=== PATIENT | female | born 1935 | race Caucasian/White ===

== ENCOUNTER 2024-06-15 13:48 | Emergency (ER) | payer OTHER, MEDICAID ==
[~2024-06-15] VITALS: Ht 170.2 cm; Wt 78.0 kg
[2024-06-15 13:56] VITALS: O2SAT 94
[2024-06-15 14:53] LABS: CHLORIDE 105 mEq/L (98-107); POTASSIUM 4.6 mEq/L (3.5-5.1); SODIUM 137 mEq/L (136-145)
[2024-06-15 14:54] LABS: CARBON DIOXIDE 29 mEq/L (21-32)
[2024-06-15 14:55] LABS: CALCIUM 9.1 mg/dL (8.7-10.4)
[2024-06-15 14:59] LABS: CREATININE 0.7 mg/dL (0.6-1.0); GLUCOSE 111 mg/dL (70-105); UREA NITROGEN BLOOD 14 mg/dL (9-23)
[2024-06-15 15:00] LABS: BASOPHILS % 1.3 % (0.0-2.0); EOSINOPHILS % 0.8 % (0.0-5.0); HEMATOCRIT. 23.7 % (36.0-48.0); HEMOGLOBIN. 7.1 g/dL (12.0-16.0); LYMPHOCYTES % 24.9 % (20.0-50.0); MEAN CORPUSCULAR HEMOGLOBIN 20.8 pg (28.0-32.0); MEAN CORPUSCULAR HGB CONC 29.7 g/dL (31.0-37.0); MEAN CORPUSCULAR VOLUME 69.8 fL (81.0-99.0); MEAN PLATELET VOLUME 8.9 fl (7.4-10.4); MONOCYTES % 12.5 % (2.0-8.0); NEUTROPHILS % 60.5 % (40.0-76.0); PLATELET 219 x1000/uL (130-400); RED BLOOD CELL COUNT 3.39 mill/uL (4.2-5.4); RED CELL DISTRIBUTION WIDTH 17.5 % (11.6-14.6); WHITE BLOOD COUNT 6.9 x1000/uL (4.5-11.0)
[2024-06-15 15:04] LABS: DIFFERENTIAL COMMENT 1
[2024-06-15 15:05] LABS: ADD RBC MORPHOLOGY YES
[2024-06-15 15:56] LABS: CLARITY URINE CLEAR (CLEAR); COLOR URINE YELLOW (YELLOW); GLUCOSE URINE NEGATIVE (NEGATIVE); KETONES URINE NEGATIVE (NEGATIVE); LEUKOCYTE ESTERASE URINE 3+ (NEGATIVE); NITRITE URINE NEGATIVE (NEGATIVE); OCCULT BLOOD URINE NEGATIVE (NEGATIVE); PH URINE 7.5 (4.5-8.0); PROTEIN URINE NEGATIVE (NEGATIVE); SPECIFIC GRAVITY URINE 1.006 (1.005-1.030)
[2024-06-15 16:21] LABS: ANISOCYTOSIS 1+; PLATELET ESTIMATE NORMAL
[2024-06-15 16:22] LABS: HYPOCHROMASIA 1+; MICROCYTOSIS 3+
[2024-06-15] MEDS ORDERED: NITR-87 MT (16:58)
[2024-06-15 17:16] LABS: BACTERIA URINE 2+; RBC URINE 0-2 /hpf (0-2); SQUAMOUS EPITHELIAL CELL URINE 1+ /lpf (RARE/1+); WBC URINE 50-100 /hpf (0-2)
[2024-06-15] MEDS: NITROFURANTOIN 100MG M/M CAPSULE PO ONE (17:31)
[2024-06-15 17:34] VITALS: BP 142/60; PULSE 85; RESP 20; TEMP 37; O2SAT 95
== END 2024-06-15 17:40 | disposition home or self-care (01) ==
LOC: ER 13:48 → EDBEDREQ 15:02 → ER 17:40
DX: N39.0 Urinary tract infection, site not specified (principal); I10 Essential (primary) hypertension; F03.90 Unspecified dementia, unspecified severity, without behavioral disturbance, psychotic disturbance, mood disturbance, and anxiety
CPT/HCPCS: 36415; 71045; 80048; 81003; 83880; 85025; 87077; 87186; 99284

== ENCOUNTER 2024-09-10 22:10 | Inpatient (IN) | payer OTHER, MEDICAID, MEDICARE ==
[~2024-09-10] VITALS: Ht 165.1 cm; Wt 69.4 kg
[~2024-09-10 22:10] MED LIST: NITR-87 MT
[2024-09-11] VITALS (8 sets, daily range): BP systolic 125–157; BP diastolic 53–73; PULSE 75–97; RESP 16–20; TEMP 36.2–37.4; O2SAT 94–98
[2024-09-11] MEDS: SODIUM CHLORIDE 0.9% 1,000 ML IV ONE ×2 (00:14→01:38)
[2024-09-11] MEDS: MIDAZOLAM HCL 2 MG/2 ML VIAL IM ONE (01:09)
[2024-09-11 01:47] LABS: BASOPHILS % 0.5 % (0.0-2.0); EOSINOPHILS % 0.7 % (0.0-5.0); HEMATOCRIT. 27.9 % (36.0-48.0); HEMOGLOBIN. 8.4 g/dL (12.0-16.0); LYMPHOCYTES % 14.7 % (20.0-50.0); MEAN PLATELET VOLUME 7.7 fl (7.4-10.4); MONOCYTES % 9.1 % (2.0-8.0); NEUTROPHILS % 75.0 % (40.0-76.0); PLATELET 288 x1000/uL (130-400); RED BLOOD CELL COUNT 4.05 mill/uL (4.2-5.4); RED CELL DISTRIBUTION WIDTH 20.3 % (11.6-14.6)
[2024-09-11 01:48] LABS: ADD RBC MORPHOLOGY YES
[2024-09-11 02:12] LABS: TROPONIN I HIGH SENSITIVITY 27 ng/L (3.0-34)
[2024-09-11 02:53] LABS: CREATININE 0.7 mg/dL (0.6-1.0); UREA NITROGEN BLOOD 10 mg/dL (9-23)
[2024-09-11] MEDS: CEFTRIAXONE 2GM/50ML 50 ML IV NR (03:58)
[2024-09-11 03:59] LABS: TROPONIN I HIGH SENSITIVITY 21 ng/L (3.0-34)
[2024-09-11 05:09] LABS: PLATELET ESTIMATE NORMAL
[2024-09-11] MEDS: AZITHROMYCIN 500MG/250ML 250 ML IV NR (05:26)
[2024-09-11 09:21] LABS: CLARITY URINE CLEAR (CLEAR); COLOR URINE YELLOW (YELLOW); GLUCOSE URINE NEGATIVE (NEGATIVE); KETONES URINE NEGATIVE (NEGATIVE); LEUKOCYTE ESTERASE URINE NEGATIVE (NEGATIVE); NITRITE URINE NEGATIVE (NEGATIVE); OCCULT BLOOD URINE NEGATIVE (NEGATIVE); PH URINE 8.5 (4.5-8.0); PROTEIN URINE NEGATIVE (NEGATIVE); SPECIFIC GRAVITY URINE 1.009 (1.005-1.030); UROBILINOGEN URINE 1.0 E.U./dL (0.2-1.0)
[2024-09-11] MEDS: HALOPERIDOL LACTATE 5MG/ML VIAL IM SCH (09:53)
[2024-09-11] MEDS: IPRATROPIUM/ALBUTEROL 0.5-3(2.5)MG/3ML NEB HHN SCH (13:01)
[2024-09-11] MEDS ORDERED: HYDRALAZINE HCL 25MG TABLET PO PRN (13:15)
[2024-09-11] MEDS ORDERED: CLONIDINE 0.1MG TABLET PO PRN (14:15)
[2024-09-11] MEDS ORDERED: MAGNESIUM/ALUMINUM HYDROXIDE/SIMETHICONE 30ML UDC PO PRN (14:15)
[2024-09-11] MEDS ORDERED: ACETAMINOPHEN 325MG TABLET PO PRN (14:15)
[2024-09-11] MEDS ORDERED: ONDANSETRON HCL 4MG/2ML INJ IV PRN (14:15)
[2024-09-11] MEDS ORDERED: IPRATROPIUM/ALBUTEROL 0.5-3(2.5)MG/3ML NEB HHN PRN (14:15)
[2024-09-11] MEDS ORDERED: NALOXONE HCL 0.4MG/ML VIAL IV PRN (14:45)
[2024-09-11] MEDS: CLOPIDOGREL 75MG TABLET PO SCH (15:47)
[2024-09-11] MEDS: ENOXAPARIN 40MG/0.4ML SYR SUBCUT SCH (15:47)
[2024-09-11] MEDS: ASPIRIN 81MG EC TABLET PO SCH (15:47)
[2024-09-11] MEDS ORDERED: CLOP-31 PO (15:52)
[2024-09-11] MEDS ORDERED: ENOX40DI8 SUBCUT (15:52)
[2024-09-11] MEDS ORDERED: AMLO5TAB88 PO (15:52)
[2024-09-11] MEDS ORDERED: QUET25TA PO (15:52)
[2024-09-11] MEDS ORDERED: CLON0.1T PO (15:52)
[2024-09-11] MEDS ORDERED: LIP40 PO (15:52)
[2024-09-11] MEDS ORDERED: FURO20TA4 PO (15:52)
[2024-09-11] MEDS ORDERED: ASPI-1406 PO (15:52)
[2024-09-11] MEDS ORDERED: TRAZ-251 PO (15:52)
[2024-09-11] MEDS ORDERED: TOPUD PO (15:52)
[2024-09-11] MEDS: ATORVASTATIN CALCIUM 40MG TABLET PO SCH (21:35)
[2024-09-11] MEDS: QUETIAPINE FUMARATE 25MG TABLET PO SCH (21:35)
[2024-09-11] MEDS: TRAZODONE HCL 50MG TABLET PO SCH (21:35)
[2024-09-12] VITALS (8 sets, daily range): BP systolic 121–157; BP diastolic 58–79; PULSE 92–107; RESP 15–22; TEMP 36.6–37.2; O2SAT 90–98
[2024-09-12] MEDS: PANTOPRAZOLE SODIUM 40 MG/VIAL IV SCH (09:58)
[2024-09-12] MEDS: AMLODIPINE 5MG TABLET PO SCH (09:59)
[2024-09-12] MEDS: FUROSEMIDE 20MG TABLET PO SCH (09:59)
[2024-09-12] MEDS: HYDROCODONE/ACETAMINOPHEN 5/325MG TABLET PO PRN (16:28)
[2024-09-12 18:03] LABS: BASOPHILS % 0.5 % (0.0-2.0); EOSINOPHILS % 0.7 % (0.0-5.0); HEMATOCRIT. 28.2 % (36.0-48.0); HEMOGLOBIN. 8.6 g/dL (12.0-16.0); LYMPHOCYTES % 15.8 % (20.0-50.0); MEAN PLATELET VOLUME 8.4 fl (7.4-10.4); MONOCYTES % 8.4 % (2.0-8.0); NEUTROPHILS % 74.6 % (40.0-76.0); PLATELET 300 x1000/uL (130-400); RED BLOOD CELL COUNT 4.13 mill/uL (4.2-5.4); RED CELL DISTRIBUTION WIDTH 21.0 % (11.6-14.6)
[2024-09-12 18:14] LABS: CREATININE 0.6 mg/dL (0.6-1.0); TRIGLYCERIDE 44 mg/dL (0-150); UREA NITROGEN BLOOD 8 mg/dL (9-23)
[2024-09-12 18:15] LABS: LDL CHOLESTEROL 20 mg/dL (5-100)
[2024-09-12 18:22] LABS: TROPONIN I HIGH SENSITIVITY 62 ng/L (3.0-34)
== END 2024-09-12 19:45 | disposition short-term general hospital (02) | DRG 70 ==
LOC: ER 22:10 → EDBEDREQ 09-11 03:08 → 7WST 09-11 04:17 → EDBEDREQ 09-11 07:33 → EDBEDREQTM 09-11 07:33 → ENRESERV 09-11 07:44
PROVIDERS: ADMIT Internal Medicine; ATTEND Internal Medicine
DX: G93.41 Metabolic encephalopathy (principal); J18.9 Pneumonia, unspecified organism; J44.0 Chronic obstructive pulmonary disease with (acute) lower respiratory infection; R47.1 Dysarthria and anarthria; F03.90 Unspecified dementia, unspecified severity, without behavioral disturbance, psychotic disturbance, mood disturbance, and anxiety; R29.810 Facial weakness; D64.9 Anemia, unspecified; R13.10 Dysphagia, unspecified; E78.00 Pure hypercholesterolemia, unspecified; Z86.73 Personal history of transient ischemic attack (TIA), and cerebral infarction without residual deficits; Z78.1 Physical restraint status; Z79.82 Long term (current) use of aspirin; Z87.440 Personal history of urinary (tract) infections; Z87.891 Personal history of nicotine dependence; I10 Essential (primary) hypertension
CPT/HCPCS: 36415; 71045; 80048; 80061; 81003; 82550; 82962; 83036; 83605; 84484; 85025; 92523; 92610; 94070; 94640; 99285; J0456; J0696; J1630; J1650; J2250; J2470; J7030